=== PATIENT | male | born 1950 | race Two or more races ===

== ENCOUNTER 2017-09-05 19:40 | Inpatient (IN) | payer OTHER ==
[~2017-09-05] VITALS: Ht 170.2 cm; Wt 72.6 kg
[2017-09-05] MEDS ORDERED: CELE100C98 PO (19:56)
[2017-09-05] MEDS ORDERED: ALLO100T PO (19:56)
[2017-09-05] MEDS ORDERED: DICL75TA5 PO (19:56)
[2017-09-05] MEDS ORDERED: AMLO5TAB2 PO (19:56)
[2017-09-05] MEDS ORDERED: OMEP20CA10 PO (19:56)
[2017-09-05] MEDS ORDERED: CYCL10TA9 PO (19:56)
--- NOTE | 2017-09-05 19:59 | NUR ---
Patient BIB [facility] c/o GI BLEED. Patient is reportedly FAR[place] speaking only and his is on the way and can provide some translation. However, patient began answering questions in luxembourger and ultimately told staff that he could speak some luxembourger. He states that he observed bright red blood in his stool, an estimate of amount was not obtained. Patient has strong odor of alcohol. To room 5A.
[2017-09-05] MEDS ORDERED: IV NORMAL SALINE 1000 ML BAG IV ONE (20:00)
[2017-09-05] MEDS ORDERED: ONDANSETRON 4 MG/2 ML VIAL IV ONE (20:00)
[2017-09-05] MEDS ORDERED: HYDROMORPHONE 1 MG/1 ML DISP.SYRIN IV ONE (20:00)
[2017-09-05] MEDS ORDERED: HYDROMORPHONE 2 MG/1 ML DISP.SYRIN ONE (20:05)
[2017-09-05] MEDS ORDERED: ONDANSETRON 4 MG/2 ML VIAL ONE (20:05)
--- NOTE | 2017-09-05 20:15 | NUR ---
Patient became delirious after administration of ordered medications. Patient began reaching for objects that were not visible and was observed staring at unknown objects in the direction of the ceiling. ERMD notified, patient on monitor, at bedside.
[2017-09-05 20:28] LABS: BASOPHILS # (AUTO) 0.1 K/uL (0.0-8.0); BASOPHILS % (AUTO) 1.4 % (0.0-2.0); EOSINOPHILS # (AUTO) 0.1 K/uL (0.0-0.7); EOSINOPHILS % (AUTO) 1.6 % (0.0-7.0); HEMATOCRIT 44.4 % (40-50); HEMOGLOBIN 14.9 G/DL (14.0-18.0); LYMPHOCYTES # (AUTO) 2.8 K/UL (0.8-4.8); LYMPHOCYTES % (AUTO) 40.2 % (20.5-51.5); MEAN CORPUSCULAR HEMOGLOBIN 34.8 UUG (27.0-31.0); MEAN CORPUSCULAR HGB CONC 34 g/dL (32.0-37.0); MEAN CORPUSCULAR VOLUME 103.7 FL (82.0-92.0); MONOCYTES # (AUTO) 0.8 K/UL (0.1-1.30); MONOCYTES % (AUTO) 10.9 % (0.0-11.0); NEUTROPHILS # (AUTO) 3.3 K/UL (1.8-8.9); NEUTROPHILS % (AUTO) 45.9 % (38.5-71.5); PLATELET COUNT (AUTO) 140 K/UL (150-450); RED BLOOD CELL COUNT(AUTO) 4.28 MIL/UL (4.7-6.1); WHITE BLOOD COUNT (AUTO) 7.1 K/UL (4.0-11.2)
[2017-09-05 20:45] LABS: BILIRUBIN,DIRECT 0.3 mg/dL (0.0-0.2); BILIRUBIN,TOTAL 0.7 mg/dL (0.2-1.0); CREATININE 0.8 mg/dL (0.6-1.3); POTASSIUM 3.5 mmol/L (3.5-5.1); TOTAL PROTEIN, SERUM 6.2 g/dL (6.4-8.2)
[2017-09-05] MEDS ORDERED: IOHEXOL 350 100 ML INFUS..BTL ONE ×2 (22:13→22:43)
[2017-09-05] MEDS ORDERED: IV NORMAL SALINE 250 ML IV ONE (22:13)
[2017-09-05] MEDS ORDERED: NORMAL SALINE FLUSH 10 ML DISP.SYRIN ONE (22:13)
--- NOTE | 2017-09-05 22:40 | NUR ---
Patient's daughter arrived and spoke with staff. She states that patient has been drinking excessively lately and that the family has been attempting to convince him to return to detox. Patient's daughter states that the patient was admitted to [facility] last year and that the family has been encouraging his return. JOSE notified.
--- NOTE | 2017-09-05 23:40 | NUR ---
Call placed to [facility], Dr. TOMAS has been paged.
--- NOTE | 2017-09-06 00:03 | NUR ---
DR TOMAS CALLED BACK. INFORMED DR LUNA THAT HE DOES NOT TAKE Estefany FOSTER PATIENT ANYMORE
--- NOTE | 2017-09-06 00:06 | NUR ---
PAGED EPPIC PANEL REQUESTED BY DR LUNA. WAITING FOR DR RIVAS TO CALL BACK
[2017-09-06] MEDS ORDERED: Z GUARD REMEDY PASTE 57 GM TUBE TOP PRN (00:30)
[2017-09-06] MEDS ORDERED: ACETAMINOPHEN 325 MG TABLET PO PRN (00:30)
[2017-09-06] MEDS ORDERED: MAGNESIUM HYDROXIDE 30 ML LIQUID UDC PO PRN (00:30)
[2017-09-06] MEDS ORDERED: ONDANSETRON 4 MG/2 ML VIAL IV PRN (00:30)
--- NOTE | 2017-09-06 00:35 | NUR ---
Patient more alert at this time, ambulated to restroom with staff assistance. ERMD notified.
[2017-09-06 00:52] LABS: *BILIRUBIN,URIN NEGATIVE (NEGATIVE); *BLOOD, URINE 1+ (NEGATIVE); *COLOR,URINE YELLOW (YELLOW); *KETONES,URINE TRACE (NEGATIVE); *PROTEIN,URINE 2+ (NEGATIVE); LEUKOCYTE ESTERASE ,URINE NEGATIVE (NEGATIVE); NITRITE, URINE NEGATIVE (NEGATIVE); PH,URINE 5.5 (5.0-8.0); UGLUCOSE NEGATIVE (NEGATIVE)
--- NOTE | 2017-09-06 00:54 | NUR ---
Pt. admitted to TELE, under care of Dr. Melendez Belongs List completed
[2017-09-06 00:57] VITALS: BP 117/66
[2017-09-06 01:26] LABS: *CLARITY,URINE HAZY (CLEAR)
[2017-09-06 01:27] LABS: BACTERIA,URINE NONE SEEN /HPF (NONE SEEN); RBC,URINE 0-3 /HPF (0-3); SQUAMOUS EPITHELIAL CELL,UR FEW /HPF (NONE SEEN); WBC,URINE 0-3 /HPF (0-3)
[2017-09-06] MEDS ORDERED: THIAMINE HCL 200 MG/2 ML VIAL ONE (02:26)
[2017-09-06] MEDS ORDERED: FOLIC ACID 5 MG/ML VIAL IV ONE (02:27)
[2017-09-06 04:00] VITALS: BP 118/67
--- NOTE | 2017-09-06 08:30 | NUR ---
AWAKE ALERT COOPERATE WELL NO SOB C./O OF PAIN AND NAUSEA MED PRN GIVEN ORDER RERSTING WELL KEEP NPO EXCEPT MEDICINE AND CALL LIGHT WITHIN REACH
[2017-09-06] MEDS: ALLOPURINOL 100 MG TABLET PO SCH (10:01)
[2017-09-06] MEDS: HYDROCODONE/APAP 5-325MG TABLET PO PRN ×2 (10:01→20:43)
[2017-09-06] MEDS: PANTOPRAZOLE SODIUM 40 MG VIAL IV SCH (10:01)
[2017-09-06] MEDS: IV NS 1000 ML 1,000 ML IV PRN ×2 (10:02→18:16)
[2017-09-06] MEDS ORDERED: FOLIC ACID 1 MG in IV DEXTROSE 5% 50 ML IV SCH (10:30)
[2017-09-06] MEDS ORDERED: THIAMINE HCL INJ 100 MG in IV DEXTROSE 5% 50 ML IV SCH (10:30)
[2017-09-06 11:11] VITALS: BP 133/76
[2017-09-06 11:43] LABS: BASOPHILS # (AUTO) 0.1 K/uL (0.0-8.0); BASOPHILS % (AUTO) 1.3 % (0.0-2.0); EOSINOPHILS # (AUTO) 0.1 K/uL (0.0-0.7); EOSINOPHILS % (AUTO) 0.9 % (0.0-7.0); HEMATOCRIT 42.4 % (40-50); HEMOGLOBIN 14.3 G/DL (14.0-18.0); LYMPHOCYTES # (AUTO) 1.3 K/UL (0.8-4.8); LYMPHOCYTES % (AUTO) 20.6 % (20.5-51.5); MEAN CORPUSCULAR HGB CONC 34 g/dL (32.0-37.0); MEAN CORPUSCULAR VOLUME 104.1 FL (82.0-92.0); MONOCYTES # (AUTO) 0.6 K/UL (0.1-1.30); MONOCYTES % (AUTO) 10.5 % (0.0-11.0); NEUTROPHILS % (AUTO) 66.7 % (38.5-71.5); PLATELET COUNT (AUTO) 130 K/UL (150-450); RED BLOOD CELL COUNT(AUTO) 4.07 MIL/UL (4.7-6.1); WHITE BLOOD COUNT (AUTO) 6.1 K/UL (4.0-11.2)
--- NOTE | 2017-09-06 12:00 | NUR ---
FAMILY AT BEDSIDE DR AHMADI SEEN PATIENT AND PT CONDITION INFORM NEW ORDER IN CHART
--- NOTE | 2017-09-06 12:20 | NUR ---
C/O SOME ANXIOUS ATIVAN PRN GIVEN ORDER AND DIET ADV TO FULL LIQ TING WELL NO N/V OR PAIN
[2017-09-06] MEDS: LORAZEPAM 2 MG/1 ML VIAL IV PRN ×2 (12:24→20:43)
[2017-09-06] MEDS: HYDROMORPHONE 1 MG/1 ML DISP.SYRIN IV PRN (14:52)
[2017-09-06 15:31] VITALS: BP 142/70
[2017-09-06 16:05] LABS: BILIRUBIN,DIRECT 0.2 mg/dL (0.0-0.2); BILIRUBIN,TOTAL 0.8 mg/dL (0.2-1.0); CREATININE 0.9 mg/dL (0.6-1.3); MAGNESIUM 1.5 mg/dL (1.8-2.4); PHOSPHOROUS 4.3 mg/dL (2.5-4.9); POTASSIUM 3.4 mmol/L (3.5-5.1); TOTAL PROTEIN, SERUM 6.3 g/dL (6.4-8.2)
--- NOTE | 2017-09-06 18:00 | NUR ---
CTABLE HEMODYNAMIC EAT LIQ DIET WELL NO N/V PAIN UNDER CONTROL NO ACUTE DISTRESS CALL LIGHT WITHIN REACH
--- NOTE | 2017-09-06 19:30 | NUR ---
PT RECEIVED IN BED, AWAKE. A/OX4. ABLE TO MAKE NEEDS KNOWN. V/S STABLE. IN NO ACUTE DISTRESS. NO C/O PAIN AT THIS TIME. IVF INFUSING. PT ON 2L NC, TOLERATING WELL. NO C/O SOB. SINUS RHYTHM AT 62BPM ON THE TELE MONITOR. CONT TO BE ON FULL LIQUID DIET, TOLERATING WELL. SAFETY MEASURES IMPLEMENTED. CALL LIGHT WITHIN REACH.
[2017-09-06 20:00] VITALS: BP 134/81
--- NOTE | 2017-09-06 20:45 | NUR ---
PT STATES HE FEELS THE URGE AND ANXIOUS TO SMOKE. OFFERED TO ORDER NICOTINE PATCH, PT REFUSED. OFFERED ATIVAN. PT REQUEST FOR ATIVAN. ATIVAN ADMINISTERED ORDERED. PT STATES HE ALSO HAS ABDOMINAL PAIN 5/10. ADMINISTERED PAIN MEDICATION ORDERED. WILL CONT TO MONITOR
[2017-09-07] VITALS: BP 137/75
[2017-09-07 04:00] VITALS: BP 136/77
[2017-09-07] MEDS: IV NS 1000 ML 1,000 ML IV PRN ×2 (04:48→21:43)
[2017-09-07] MEDS: HYDROCODONE/APAP 5-325MG TABLET PO PRN ×2 (04:48→23:13)
[2017-09-07] MEDS: LORAZEPAM 2 MG/1 ML VIAL IV PRN ×2 (04:49→19:33)
[2017-09-07] MEDS: PANTOPRAZOLE SODIUM 40 MG VIAL IV SCH (06:38)
--- NOTE | 2017-09-07 06:45 | NUR ---
END OF SHIFT NOTES. PT SLEPT INTERMITTENTLY THROUGH SHIFT. IN STABLE CONDITION. IVF INFUSING. PAIN MANAGED. PT CONT TO BE ANXIOUS, WANTING TO GET OUT OF BED AND WALK. ATIVAN ADMINISTERED ORDERED. ON 2L NC PRN. TOLERATING WELL. ALL NEEDS ATTENDED. SAFETY MAINTAINED. CALL LIGHT WITHIN REACH.
--- NOTE | 2017-09-07 07:29 | NUR ---
PT RECEIVED IN BED, AWAKE. ABLE TO MAKE NEEDS KNOWN. V/S STABLE. IN NO ACUTE DISTRESS. NO C/O PAIN AT THIS TIME. IVF INFUSING. PT ON 2L NC, TOLERATING WELL. NO C/O SOB. SINUS RHYTHM AT 62BPM ON THE TELE MONITOR.SAFETY MEASURES IMPLEMENTED. CALL LIGHT WITHIN REACH.
[2017-09-07 07:30] LABS: BILIRUBIN,TOTAL 1.5 mg/dL (0.2-1.0); CREATININE 0.8 mg/dL (0.6-1.3); POTASSIUM 3.7 mmol/L (3.5-5.1)
[2017-09-07 07:49] LABS: BASOPHILS % (AUTO) 0.8 % (0.0-2.0); EOSINOPHILS # (AUTO) 0.2 K/uL (0.0-0.7); HEMATOCRIT 40.3 % (36.7-47.1); LYMPHOCYTES # (AUTO) 1.2 K/uL (20.0-40.0); LYMPHOCYTES % (AUTO) 22.7 % (20.5-51.5); MEAN CORPUSCULAR HEMOGLOBIN 36.2 uug (23.8-33.4); MEAN CORPUSCULAR HGB CONC 35 g/dL (32.5-36.3); MONOCYTES # (AUTO) 0.6 K/uL (2.0-10.0); MONOCYTES % (AUTO) 11.1 % (0.0-11.0); NEUTROPHILS # (AUTO) 3.2 K/uL (1.8-8.9); NEUTROPHILS % (AUTO) 62.4 % (38.5-71.5); PLATELET COUNT (AUTO) 106 K/uL (152-348); RED BLOOD CELL COUNT(AUTO) 3.87 MIL/uL (4.06-5.63); WHITE BLOOD COUNT (AUTO) 5.2 K/uL (3.6-10.2)
[2017-09-07 07:59] LABS: MAGNESIUM 1.2 mg/dL (1.8-2.4)
[2017-09-07] MEDS: ALLOPURINOL 100 MG TABLET PO SCH (08:00)
[2017-09-07] MEDS: FOLIC ACID 1 MG in IV DEXTROSE 5% 50 ML IV SCH (09:10)
[2017-09-07] MEDS: THIAMINE HCL INJ 100 MG in IV DEXTROSE 5% 50 ML IV SCH (09:10)
[2017-09-07 11:04] VITALS: BP 116/71
[2017-09-07] MEDS: MAGNESIUM SULFATE/D5W 100 ML IV SCH ×4 (12:04→15:20)
[2017-09-07] MEDS: HYDROMORPHONE 1 MG/1 ML DISP.SYRIN IV PRN (13:29)
[2017-09-07 15:04] VITALS: BP 127/80
--- NOTE | 2017-09-07 19:45 | NUR ---
RECEIVED PATIENT IN BED, HOB ELEVATED, NO SOB NO CHEST PAIN NOTED, RHYTHM IS SINUS RHYTHM , PATIENT HAS EPISODES OF RESTLESSNESS, WANTED TO WANDER AROUND, ORIENTED PATIENT, AT BEDSIDES, ASSISTED WITH TOILETING, CALL LIGHT WITHIN REACH, CONT TO MONITOR.
[2017-09-07 20:00] VITALS: BP 117/67
[2017-09-08] VITALS: BP 147/96
[2017-09-08 04:00] VITALS: BP 139/75
--- NOTE | 2017-09-08 05:00 | NUR ---
PATIENT SLEPT MOST OF THE NIGHT, NO SOB NO CHEST PAIN NOTED, RHYTHM IS SINUS RHYTHM WITH 1ST DEGREE BUNDLE BRANCH, VOIDED IN DIAPER, ALSO ASSISTED TO BATHROOM FOR BLADDER ELIMINATION, WITH MAX ASSIST RISK FOR FALL, BED ALARM IN PLACE, NO COUGHING NO CONGESTION NOTED, NO FURTHER COMPLAIN OF PAIN, MEDICATED EARLIER FOR ANXIETY RESTLESS WITH EFFECTIVE RESULT WITH NO ADVERSE REACTION NOTED, CALL LIGHT WITHIN REACH.
[2017-09-08] MEDS: LORAZEPAM 2 MG/1 ML VIAL IV PRN ×4 (06:21→20:20)
[2017-09-08] MEDS: PANTOPRAZOLE SODIUM 40 MG VIAL IV SCH (06:21)
[2017-09-08 07:18] LABS: CREATININE 0.7 mg/dL (0.6-1.3); MAGNESIUM 1.6 mg/dL (1.8-2.4); PHOSPHOROUS 3.1 mg/dL (2.5-4.9); POTASSIUM 3.3 mmol/L (3.5-5.1); TOTAL PROTEIN, SERUM 5.9 g/dL (6.4-8.2)
[2017-09-08 07:38] LABS: BASOPHILS % (AUTO) 0.7 % (0.0-2.0); EOSINOPHILS # (AUTO) 0.2 K/uL (0.0-0.7); EOSINOPHILS % (AUTO) 3.6 % (0.0-7.0); HEMATOCRIT 40.8 % (40-50); HEMOGLOBIN 13.9 G/DL (14.0-18.0); LYMPHOCYTES # (AUTO) 0.9 K/UL (0.8-4.8); LYMPHOCYTES % (AUTO) 17.7 % (20.5-51.5); MEAN CORPUSCULAR HEMOGLOBIN 35.2 UUG (27.0-31.0); MEAN CORPUSCULAR HGB CONC 34 g/dL (32.0-37.0); MEAN CORPUSCULAR VOLUME 103.4 FL (82.0-92.0); MONOCYTES # (AUTO) 0.5 K/UL (0.1-1.30); MONOCYTES % (AUTO) 9.8 % (0.0-11.0); NEUTROPHILS # (AUTO) 3.5 K/UL (1.8-8.9); NEUTROPHILS % (AUTO) 68.2 % (38.5-71.5); PLATELET COUNT (AUTO) 113 K/UL (150-450); RED BLOOD CELL COUNT(AUTO) 3.95 MIL/UL (4.7-6.1); WHITE BLOOD COUNT (AUTO) 5.1 K/UL (4.0-11.2)
[2017-09-08] MEDS: IV NS 1000 ML 1,000 ML IV PRN (09:18)
[2017-09-08] MEDS: FOLIC ACID 1 MG in IV DEXTROSE 5% 50 ML IV SCH (09:24)
[2017-09-08] MEDS: THIAMINE HCL INJ 100 MG in IV DEXTROSE 5% 50 ML IV SCH (09:24)
[2017-09-08] MEDS: ALLOPURINOL 100 MG TABLET PO SCH (09:25)
[2017-09-08 11:00] VITALS: BP 115/79
[2017-09-08 15:00] VITALS: BP 127/80
[2017-09-08] MEDS ORDERED: POTASSIUM CHLORIDE 20 MEQ TAB.PRT.SR PO ONE (16:45)
[2017-09-08] MEDS: MAGNESIUM SULFATE/D5W 100 ML IV SCH ×2 (18:08→21:06)
--- NOTE | 2017-09-08 19:30 | NUR ---
RECEIVED IN BED AWAKE CONFUSED WITH AT BEDSIDE. PT IS ATTEMPTING TO GET OUT OF BED. CONTINUES TO REDIRECT. WILL CONTINUE TO MONITOR CLOSELY
[2017-09-08 20:00] VITALS: BP 147/109
[2017-09-08] MEDS ORDERED: MAGNESIUM SULFATE/D5W 100 ML ONE (21:11)
[2017-09-08] MEDS: HYDROMORPHONE 1 MG/1 ML DISP.SYRIN IV PRN (21:29)
[2017-09-09] MEDS: IV NS 1000 ML 1,000 ML IV PRN (04:37)
[2017-09-09 05:37] VITALS: BP 130/91
[2017-09-09 06:20] LABS: BASOPHILS % (AUTO) 0.7 % (0.0-2.0); EOSINOPHILS # (AUTO) 0.2 K/uL (0.0-0.7); EOSINOPHILS % (AUTO) 3.2 % (0.0-7.0); HEMATOCRIT 42.8 % (40-50); HEMOGLOBIN 14.7 G/DL (14.0-18.0); LYMPHOCYTES # (AUTO) 1.2 K/UL (0.8-4.8); LYMPHOCYTES % (AUTO) 19.5 % (20.5-51.5); MEAN CORPUSCULAR HEMOGLOBIN 35.7 UUG (27.0-31.0); MEAN CORPUSCULAR HGB CONC 34 g/dL (32.0-37.0); MEAN CORPUSCULAR VOLUME 103.9 FL (82.0-92.0); MONOCYTES # (AUTO) 0.8 K/UL (0.1-1.30); MONOCYTES % (AUTO) 12.5 % (0.0-11.0); NEUTROPHILS # (AUTO) 3.8 K/UL (1.8-8.9); NEUTROPHILS % (AUTO) 64.1 % (38.5-71.5); PLATELET COUNT (AUTO) 130 K/UL (150-450); RED BLOOD CELL COUNT(AUTO) 4.12 MIL/UL (4.7-6.1)
--- NOTE | 2017-09-09 06:26 | NUR ---
PT SLEPT MOST OF THE NIGHT WITH AT BEDSIDE. PT PULL OUT IV. #20G RESTARTED ON THE HAND. WILL CONTINUE TO MONITOR FOR COMFORT AND SAFETY.
[2017-09-09 06:34] LABS: CREATININE 0.7 mg/dL (0.6-1.3); MAGNESIUM 1.6 mg/dL (1.8-2.4); PHOSPHOROUS 2.9 mg/dL (2.5-4.9); POTASSIUM 3.3 mmol/L (3.5-5.1)
[2017-09-09] MEDS ORDERED: PANTOPRAZOLE SODIUM 40 MG TABLET.DR PO SCH (07:00)
--- NOTE | 2017-09-09 07:30 | NUR ---
[facility]PIR[facility]ORY DISTRESS REMAIN ON O2 AT 2L/M BY NASAL CANULA CALM AND COMFORTABLE AT THIS TIME.
[2017-09-09] MEDS: ALLOPURINOL 100 MG TABLET PO SCH (08:29)
[2017-09-09] MEDS ORDERED: NICOTINE 21 MG/24HR PATCH TD SCH (09:00)
[2017-09-09] MEDS ORDERED: FOLIC ACID 1 MG TABLET PO SCH (09:00)
[2017-09-09] MEDS ORDERED: THIAMINE HCL 100 MG TABLET PO SCH (09:00)
[2017-09-09 11:16] VITALS: BP 138/88
[2017-09-09] MEDS ORDERED: THIA100T74 PO (12:11)
[2017-09-09] MEDS ORDERED: MULT1TAB73 PO (12:11)
[2017-09-09] MEDS ORDERED: LORA-259 PO (12:13)
[2017-09-09] MEDS ORDERED: POTASSIUM CHLORIDE 20 MEQ TAB.PRT.SR PO ONE (12:15)
--- NOTE | 2017-09-09 12:15 | NUR ---
PATIENT SEEN BY DR MARKO AHMADI WITH ORDER TO DISCHARGE PATIENT TODAY TO [facility] PATIENTS AT THE BEDSIDE AND AWARE STATED THAT SHE IS AWARE AND WILL FOLLOW WITH HER CAR.
--- NOTE | 2017-09-09 15:00 | NUR ---
CALLED [facility] AND REPORT GIVEN TO DARIAN FOR CONTINUING CARE AT THE BEDSIDE AND AWARE
[2017-09-09 15:06] VITALS: BP 114/81
--- NOTE | 2017-09-09 15:30 | NUR ---
PATIENT DISCHARGED PICKED UP BE MED RESPONSE IN SATISFACTORY CONDITION WITH DISCHARGE INSTRUCTIONS AND TO FOLLOW UP WITH HIS PRIMARY DOCTOR WITHIN THE NEXT ONE TO TWO WEEK AND PATIENTS EXPRESSED UNDERSTANDING.
== END 2017-09-09 15:30 | DRG 282 ==
LOC: ER 19:40 → TELE 22:15 → MED 09-08 12:55
PROVIDERS: ADMIT Internal Medicine; ATTEND Nurse Practitioner Acute Care
DX: K85.20 Alcohol induced acute pancreatitis without necrosis or infection (principal); I11.9 Hypertensive heart disease without heart failure; F10.230 Alcohol dependence with withdrawal, uncomplicated; K76.0 Fatty (change of) liver, not elsewhere classified; E83.42 Hypomagnesemia; M10.9 Gout, unspecified; K21.9 Gastro-esophageal reflux disease without esophagitis; I45.10 Unspecified right bundle-branch block; K92.1 Melena; F17.200 Nicotine dependence, unspecified, uncomplicated; E87.6 Hypokalemia; I71.2 Thoracic aortic aneurysm, without rupture; Y90.9 Presence of alcohol in blood, level not specified; I70.0 Atherosclerosis of aorta
CPT/HCPCS: 36415; 70030-TC; 71010; 71275; 83605; 83690; 83735; 84100; 85025; 85730; 86850; 86900; 86901; 87040; 93005; A4663; C9113; G0480; J1170; J2060; J2405; J3411; J3475; J3490; J7030; J7040; J7050; J7060; Q9967

== ENCOUNTER 2019-02-17 17:57 | Emergency (ER) | payer MEDICARE, OTHER ==
[~2019-02-17] VITALS: Ht 170.2 cm; Wt 72.6 kg
[~2019-02-17 17:57] MED LIST: AMLO5TAB9 PO; CELE100C98 PO; LORA-259 PO; MULT1TAB73 PO; OMEP20CA10 PO; THIA100T74 PO
--- NOTE | 2019-02-17 18:04 | NUR ---
PT A/OX4, BIB [facility], C/O LLQ ABD PAIN W/ DYSURIA AND HEMATURIA X 3 DAYS. PT REPORTS LLQ ABD PAIN IS NON-PROVOKED, PRESSURE IN QUALITY, DOES NOT RADIATE, 9/10, CONSTANT. ABD IS NON-DISTENDED IN APPEARANCE, PER PT. ABD SOUNDS ACTIVE IN ALL 4 QUADRANTS, SOFT ON PALPATION. VSS. PT DENIES C/P, SOB, N/V/D, DIZZINESS, HEADACHE.
[2019-02-17] MEDS ORDERED: ASPI81TA31 PO (18:17)
[2019-02-17] MEDS ORDERED: ALLO100T PO (18:17)
[2019-02-17] MEDS ORDERED: PREG75CA PO (18:17)
[2019-02-17] MEDS ORDERED: SULI200T4 PO (18:17)
[2019-02-17] MEDS ORDERED: HYDR-3976 PO (18:17)
[2019-02-17] MEDS ORDERED: ATOR20TA PO (18:18)
--- NOTE | 2019-02-17 18:18 | NUR ---
ALAYNA ZHANG AT BEDSIDE FOR MSE.
[2019-02-17] MEDS ORDERED: HYDROCODONE/APAP 5-325MG TABLET ONE (18:23)
[2019-02-17] MEDS ORDERED: HYDROCODONE/APAP 5-325MG TABLET PO ONE (18:30)
--- NOTE | 2019-02-17 18:40 | NUR ---
PT NOW DENIES HEMATURIA AND DYSURIA. REPORTS SCANT AMOUNT OF BLOOD IN STOOL THIS AM.
[2019-02-17 18:41] LABS: BASOPHILS # (AUTO) 0.1 K/uL (0.0-8.0); BASOPHILS % (AUTO) 1.2 % (0.0-2.0); EOSINOPHILS # (AUTO) 0.1 K/uL (0.0-0.7); EOSINOPHILS % (AUTO) 0.6 % (0.0-7.0); HEMATOCRIT 47.3 % (36.7-47.1); HEMOGLOBIN 16.1 g/dL (12.5-16.3); LYMPHOCYTES # (AUTO) 1.5 K/uL (20.0-40.0); LYMPHOCYTES % (AUTO) 15.8 % (20.5-51.5); MEAN CORPUSCULAR HEMOGLOBIN 34.8 uug (23.8-33.4); MEAN CORPUSCULAR HGB CONC 34 g/dL (32.5-36.3); MEAN CORPUSCULAR VOLUME 102.6 fL (73.0-96.2); MONOCYTES # (AUTO) 1.2 K/uL (2.0-10.0); MONOCYTES % (AUTO) 12.4 % (0.0-11.0); NEUTROPHILS # (AUTO) 6.5 K/uL (1.8-8.9); PLATELET COUNT (AUTO) 192 K/uL (152-348); RED BLOOD CELL COUNT(AUTO) 4.61 MIL/uL (4.06-5.63); WHITE BLOOD COUNT (AUTO) 9.3 K/uL (3.6-10.2)
[2019-02-17 18:50] LABS: MAGNESIUM 1.6 mg/dL (1.8-2.4)
--- NOTE | 2019-02-17 18:54 | NUR ---
SHIFT REPORT GIVEN TO NORIS Luo RN.
[2019-02-17 18:56] LABS: BILIRUBIN,DIRECT 0.3 mg/dL (0.0-0.2); BILIRUBIN,TOTAL 0.8 mg/dL (0.2-1.0); CREATININE 0.8 mg/dL (0.6-1.3); POTASSIUM 4.1 mmol/L (3.5-5.1); TOTAL PROTEIN, SERUM 7.6 g/dL (6.4-8.2)
--- NOTE | 2019-02-17 19:22 | NUR ---
Patient in bed at lowest position, side rails upx2, call light within reach. Relative at bedside. NAD, VSS.
[2019-02-17 19:37] LABS: *COLOR,URINE DARK YELLOW (YELLOW); *KETONES,URINE 1+ (NEGATIVE); *UROBILINOGEN,URINE 0.2 E.U./dl (NORMAL); LEUKOCYTE ESTERASE ,URINE NEGATIVE (NEGATIVE); NITRITE, URINE NEGATIVE (NEGATIVE); PH,URINE 5.5 (5.0-8.0); UGLUCOSE NEGATIVE (NEGATIVE)
[2019-02-17 19:41] LABS: *BILIRUBIN,URIN 1+ (NEGATIVE); *BLOOD, URINE TRACE (NEGATIVE); *CLARITY,URINE HAZY (CLEAR)
[2019-02-17] MEDS ORDERED: MAGNESIUM OXIDE 400 MG TABLET PO ONE (19:45)
[2019-02-17] MEDS ORDERED: IV NORMAL SALINE 1000 ML BAG IV ONE (20:00)
[2019-02-17] MEDS ORDERED: KETOROLAC TROMETHAMINE 15 MG INJ IVP ONE (20:00)
--- NOTE | 2019-02-17 20:03 | NUR ---
Mag-Ox not available in [facility]is, called pharmacy and they will be delivering medication.
[2019-02-17 20:05] LABS: BACTERIA,URINE FEW /HPF (NONE SEEN); SQUAMOUS EPITHELIAL CELL,UR FEW /HPF (NONE SEEN); WBC,URINE 0-3 /HPF (0-3)
--- NOTE | 2019-02-17 20:14 | NUR ---
Spoke to Chante from Lab, she was notified that the Urine specimen did not show processed at this time. She stated she received it and it is now being processed.
--- NOTE | 2019-02-17 20:17 | NUR ---
Patient transported to CT via gurney. In stable condition.
[2019-02-17] MEDS ORDERED: KETOROLAC TROMETHAMINE 15 MG INJ ONE (20:29)
--- NOTE | 2019-02-17 21:35 | NUR ---
Patients family member states " I have to work and I do not have time to take care of him. You guys need to admit him here because I don't have time to take care of him. If something happens I am blaming you". Patient is educated regarding patient care options, the need to follow up with primarycare physician and GI specialist. Patient is also told to f/u w/ Social work if she is concerned about inability to care for the patient. patients family member states she will take the patient home and care for him, she also agreed to help him obtain follow up care as instructed by ALAYNA ZHANG.
--- NOTE | 2019-02-17 21:37 | NUR ---
Patient discharged to home in stable conditon. Written and verbal after care instructions given. Patient verbalizes understanding of instructions. Patient ambulated with stable gait.
[2019-02-17 21:39] VITALS: BP 120/70
== END 2019-02-17 21:40 | disposition home or self-care (01) ==
LOC: ER 17:57
DX: R10.9 Unspecified abdominal pain (principal); F10.10 Alcohol abuse, uncomplicated; K92.1 Melena; E83.42 Hypomagnesemia; K21.9 Gastro-esophageal reflux disease without esophagitis; E78.5 Hyperlipidemia, unspecified; I10 Essential (primary) hypertension; Z79.82 Long term (current) use of aspirin; Z79.899 Other long term (current) drug therapy
CPT/HCPCS: 36415; 74176; 80048; 80076; 81001; 83690; 83735; 85025; 96374; 99284; G0480; J1885; A4663; J7030